=== PATIENT | female | born 1985 | race Two or more races ===

== ENCOUNTER 2022-08-27 14:23 | Inpatient (IN) | payer MEDICAID ==
[~2022-08-27] VITALS: Ht 165.1 cm; Wt 55.6 kg
[2022-08-27] MEDS ORDERED: OLAN10TA74 PO (16:04)
[2022-08-27] MEDS ORDERED: ZOLPIDEM TARTRATE 10 MG TABLET PO PRN (18:15)
[2022-08-27] MEDS ORDERED: INFLUENZA VIRUS VACCINE QVS 2022-23 (6MO+)/PF 60 MCG/0.5 ML SYRINGE IM. ONE (18:30)
[2022-08-27 20:57] VITALS: BP 144/94
[2022-08-28 07:03] LABS: BASOPHILS % (AUTO) 0.8 % (0.0-2.0); EOSINOPHILS % (AUTO) 1.6 % (1.0-6.0); HEMATOCRIT 42.1 % (36-46); HEMOGLOBIN 14.2 g/dL (12.0-16.0); LYMPHOCYTES % (AUTO) 34.7 % (22.0-44.0); MEAN CORPUSCULAR HEMOGLOBIN 30.2 pg (26.0-34.0); MEAN CORPUSCULAR HGB CONC 33.7 G/dL (31.0-37.0); MEAN CORPUSCULAR VOLUME 90 fL (80-100); MONOCYTES # (AUTO) 0.7 K/uL (0.1-1.0); MONOCYTES % (AUTO) 11.9 % (2.0-9.0); NEUTROPHILS # (AUTO) 2.9 K/uL (1.8-7.7); PLATELET COUNT (AUTO) 266 K/uL (150-450); RED BLOOD CELL COUNT(AUTO) 4.71 MIL/uL (4.00-5.20); RED CELL DISTRIBUTION WIDTH 14.5 % (11.5-14.5)
[2022-08-28 07:19] LABS: HEMOGLOBIN A1C 5.7 % (3.8-5.6)
[2022-08-28 07:20] LABS: ALANINE AMINOTRANSFERASE 17 U/L (12-78); ALBUMIN 3.3 g/dL (3.4-5.0); ALKALINE PHOSPHATASE 71 U/L (46-116); ANION GAP 7 mmol/L (8-16); ASPARTATE AMINOTRANSFERASE 11 U/L (15-37); BILIRUBIN,TOTAL 0.2 mg/dL (0.1-1.0); CALCIUM, TOTAL 8.6 mg/dL (8.8-10.5); CARBON DIOXIDE 32 mmol/L (22-29); CHLORIDE 102 mmol/L (98-107); CHOL/HDL RATIO 2.8 (3.9-5.7); CHOLESTEROL 155 mg/dL (131-200); CREATININE 0.69 mg/dL (0.60-1.30); FREE T4 (FREE THYROXINE) 0.93 ng/dL (0.76-1.46); GLUCOSE,RANDOM 91 mg/dL (70-110); HCG,QUANTITATIVE < 1 mIU/mL (0-6); HDL CHOLESTEROL 56 mg/dL (40-60); LDL CHOL (CALC.) 61 mg/dL (0-130); POTASSIUM 3.7 mmol/L (3.5-5.1); SODIUM SERUM 141 mmol/L (136-145); THYROID STIMULATING HORMONE 0.45 uIU/mL (0.36-3.74); TOTAL PROTEIN, SERUM 6.6 g/dL (6.4-8.2); TRIGLYCERIDES 191 mg/dL (15-150); UREA NITROGEN, BLOOD 15 mg/dL (7-18)
[2022-08-28 07:21] LABS: GLOMERULAR FILTR. RATE CALC > 60 mL/min (>60)
[2022-08-28 08:17] VITALS: BP 120/67
[2022-08-28] MEDS: HALOPERIDOL 5 MG TABLET PO PRN (11:00)
[2022-08-28] MEDS: LORazepam 2 MG TABLET PO PRN (11:00)
[2022-08-28] MEDS ORDERED: IBUPROFEN 400 MG TABLET PO PRN (11:30)
[2022-08-28] MEDS ORDERED: ALBUTEROL SULFATE HFA 90 MCG/PUFF 8 GM INHALER IH PRN (11:30)
[2022-08-28] MEDS ORDERED: NICOTINE 14 MG/24 HOUR PATCH TD PRN (11:30)
[2022-08-28] MEDS ORDERED: MAG HYDROX/AL HYDROX/SIMETH ES 30 ML SUSPENSION UDCUP PO PRN (11:30)
[2022-08-28] MEDS ORDERED: DOCUSATE SODIUM 100 MG CAPSULE PO PRN (11:30)
[2022-08-28] MEDS ORDERED: GuaiFENesin/D-METHORPHAN [SUGAR-FREE] 200-20MG/10 ML SYRUP UDCUP PO PRN (11:30)
[2022-08-28] MEDS ORDERED: ACETAMINOPHEN 325 MG TABLET PO PRN (11:30)
[2022-08-28] MEDS ORDERED: ONDANSETRON HCL 4 MG TABLET PO PRN (11:30)
[2022-08-28] MEDS ORDERED: LOPERAMIDE HCL 2 MG CAPSULE PO PRN (11:30)
[2022-08-28] MEDS ORDERED: CloNIDine HCL 0.1 MG TABLET PO PRN (11:30)
[2022-08-28] MEDS ORDERED: PETROLATUM,WHITE 28 GM JELLY TP PRN (11:30)
[2022-08-28] MEDS ORDERED: MAGNESIUM HYDROXIDE SUSPENSION 30 ML UDCUP PO PRN (11:30)
[2022-08-28] MEDS: OLANZapine 10 MG TABLET PO SCH (20:02)
[2022-08-28 20:03] VITALS: BP 116/65
[2022-08-29] MEDS ORDERED: PERMETHRIN 1% 60 ML LOTION TP ONE (07:30)
[2022-08-29 08:05] VITALS: BP 119/87
[2022-08-29] MEDS: LORazepam 2 MG TABLET PO PRN (17:00)
[2022-08-29] MEDS: HALOPERIDOL 5 MG TABLET PO PRN (17:00)
[2022-08-29 20:17] VITALS: BP 117/77
[2022-08-29] MEDS: OLANZapine 10 MG TABLET PO SCH (20:40)
[2022-08-30 08:22] VITALS: BP 112/69
[2022-08-30] MEDS: OLANZapine 10 MG TABLET PO SCH (20:08)
[2022-08-30 20:14] VITALS: BP 107/60
[2022-08-31] MEDS: LORazepam 2 MG TABLET PO PRN (09:47)
[2022-08-31 20:19] VITALS: BP 100/60
[2022-08-31] MEDS: OLANZapine 10 MG TABLET PO SCH (20:51)
[2022-09-01 06:01] LABS: GLUCOMETER DEV NAME(LOC) POC.BV
[2022-09-01 08:34] VITALS: BP 113/69
[2022-09-01] MEDS: HALOPERIDOL 5 MG TABLET PO PRN (12:47)
[2022-09-01] MEDS: LORazepam 2 MG TABLET PO PRN ×2 (12:47→21:09)
[2022-09-01] MEDS ORDERED: HALOPERIDOL LACTATE 5 MG/ML VIAL ONE (13:00)
[2022-09-01] MEDS ORDERED: LORazepam 2 MG/ML VIAL ONE (13:00)
[2022-09-01] MEDS ORDERED: DiphenhydrAMINE HCL 50 MG/ML VIAL ONE (13:00)
[2022-09-01] MEDS ORDERED: LORazepam 2 MG/ML VIAL IM ONE (13:15)
[2022-09-01] MEDS ORDERED: HALOPERIDOL LACTATE 5 MG/ML VIAL IM ONE (13:15)
[2022-09-01] MEDS ORDERED: DiphenhydrAMINE HCL 50 MG/ML VIAL IM ONE (13:15)
[2022-09-01 20:52] VITALS: BP 102/65
[2022-09-01] MEDS: OLANZapine 10 MG TABLET PO SCH (21:09)
[2022-09-02] MEDS: LORazepam 2 MG TABLET PO PRN (08:53)
[2022-09-02 20:33] VITALS: BP 102/62
[2022-09-02] MEDS: OLANZapine 10 MG TABLET PO SCH (20:35)
[2022-09-03] MEDS: HALOPERIDOL 5 MG TABLET PO PRN ×2 (08:05→13:15)
[2022-09-03] MEDS: LORazepam 2 MG TABLET PO PRN ×2 (08:05→13:15)
[2022-09-03 20:00] VITALS: BP 110/69
[2022-09-03] MEDS: OLANZapine 10 MG TABLET PO SCH (20:37)
[2022-09-04] MEDS: LORazepam 2 MG TABLET PO PRN (09:45)
[2022-09-04] MEDS: HALOPERIDOL 5 MG TABLET PO PRN (09:45)
[2022-09-04] MEDS ORDERED: OLAN10 PO (13:23)
== END 2022-09-04 16:00 | disposition home or self-care (01) | DRG 750 ==
LOC: B3A 18:13
PROVIDERS: ADMIT Psychiatry & Neurology Psychiatry; ATTEND Psychiatry & Neurology Psychiatry
DX: F25.0 Schizoaffective disorder, bipolar type (principal); R45.851 Suicidal ideations; E78.5 Hyperlipidemia, unspecified; Z20.822 Contact with and (suspected) exposure to COVID-19; F11.20 Opioid dependence, uncomplicated; G47.00 Insomnia, unspecified; Z59.00 Homelessness unspecified; Z88.1 Allergy status to other antibiotic agents; Z91.51 Personal history of suicidal behavior
CPT/HCPCS: 80053; 80061; 83036; 84439; 84443; 84702; 85025; 87081; J1200; J1630; J2060

== ENCOUNTER 2022-12-15 18:19 | Inpatient (IN) | payer MEDICAID ==
[~2022-12-15] VITALS: Ht 165.1 cm; Wt 65.3 kg
[~2022-12-15 18:19] MED LIST: OLAN10 PO
[2022-12-16 03:34] VITALS: BP 100/60
[2022-12-16 08:02] LABS: BASOPHILS % (AUTO) 0.9 % (0.0-2.0); EOSINOPHILS % (AUTO) 3.2 % (1.0-6.0); HEMATOCRIT 40.4 % (36-46); HEMOGLOBIN 13.6 g/dL (12.0-16.0); LYMPHOCYTES # (AUTO) 2.4 K/uL (1.0-4.8); LYMPHOCYTES % (AUTO) 47.2 % (22.0-44.0); MEAN CORPUSCULAR HGB CONC 33.6 G/dL (31.0-37.0); MEAN CORPUSCULAR VOLUME 90 fL (80-100); MONOCYTES # (AUTO) 0.5 K/uL (0.1-1.0); MONOCYTES % (AUTO) 9.2 % (2.0-9.0); NEUTROPHILS % (AUTO) 39.5 % (40.0-70.0); PLATELET COUNT (AUTO) 332 K/uL (150-450); RED BLOOD CELL COUNT(AUTO) 4.51 MIL/uL (4.00-5.20); RED CELL DISTRIBUTION WIDTH 13.1 % (11.5-14.5)
[2022-12-16 08:31] VITALS: BP 124/79
[2022-12-16 08:33] LABS: HEMOGLOBIN A1C 5.7 % (3.8-5.6)
[2022-12-16 08:35] LABS: ALANINE AMINOTRANSFERASE 20 U/L (12-78); ALBUMIN 3.4 g/dL (3.4-5.0); ALKALINE PHOSPHATASE 61 U/L (46-116); ANION GAP 6 mmol/L (8-16); ASPARTATE AMINOTRANSFERASE 24 U/L (15-37); BILIRUBIN,TOTAL 0.5 mg/dL (0.1-1.0); CALCIUM, TOTAL 8.6 mg/dL (8.8-10.5); CARBON DIOXIDE 28 mmol/L (22-29); CHLORIDE 107 mmol/L (98-107); CHOL/HDL RATIO 2.2 (3.9-5.7); CHOLESTEROL 137 mg/dL (131-200); CREATININE 0.71 mg/dL (0.60-1.30); FREE T4 (FREE THYROXINE) 1.18 ng/dL (0.76-1.46); GLOMERULAR FILTR. RATE CALC > 60 mL/min (>60); GLUCOSE,RANDOM 82 mg/dL (70-110); HCG,QUANTITATIVE < 1 mIU/mL (0-6); HDL CHOLESTEROL 63 mg/dL (40-60); LDL CHOL (CALC.) 63 mg/dL (0-130); POTASSIUM 3.7 mmol/L (3.5-5.1); SODIUM SERUM 141 mmol/L (136-145); THYROID STIMULATING HORMONE 0.59 uIU/mL (0.36-3.74); TOTAL PROTEIN, SERUM 6.1 g/dL (6.4-8.2); TRIGLYCERIDES 55 mg/dL (15-150); UREA NITROGEN, BLOOD 16 mg/dL (7-18)
[2022-12-16] MEDS: HALOPERIDOL 5 MG TABLET PO PRN (16:15)
[2022-12-16] MEDS: LORazepam 2 MG TABLET PO PRN (16:15)
[2022-12-16 20:03] VITALS: BP 116/76
[2022-12-16] MEDS: OLANZapine 10 MG TABLET PO SCH (20:40)
[2022-12-17 08:17] VITALS: BP 105/66
[2022-12-17] MEDS: LORazepam 2 MG TABLET PO PRN (10:06)
[2022-12-17 20:08] VITALS: BP 104/60
[2022-12-17] MEDS: OLANZapine 10 MG TABLET PO SCH (21:08)
[2022-12-18 08:06] VITALS: BP 107/64
[2022-12-18] MEDS: LORazepam 2 MG TABLET PO PRN (17:14)
[2022-12-18] MEDS: HALOPERIDOL 5 MG TABLET PO PRN (17:14)
[2022-12-18 20:00] VITALS: BP 103/71
[2022-12-18] MEDS: OLANZapine 10 MG TABLET PO SCH (20:44)
[2022-12-19 08:20] VITALS: BP 118/79
[2022-12-19] MEDS: HALOPERIDOL 5 MG TABLET PO PRN (14:33)
[2022-12-19] MEDS: LORazepam 2 MG TABLET PO PRN (14:33)
[2022-12-19] MEDS: OLANZapine 10 MG TABLET PO SCH (20:37)
[2022-12-19 21:08] VITALS: BP 108/71
[2022-12-20 08:51] VITALS: BP 123/79
[2022-12-20] MEDS: LORazepam 2 MG TABLET PO PRN (13:56)
[2022-12-20 20:00] VITALS: BP 99/60
[2022-12-20] MEDS: OLANZapine 10 MG TABLET PO SCH (20:51)
[2022-12-21 08:18] VITALS: BP 100/63
[2022-12-21] MEDS: LORazepam 2 MG TABLET PO PRN ×2 (11:06→16:06)
[2022-12-21 20:07] VITALS: BP 103/61
[2022-12-21] MEDS: OLANZapine 10 MG TABLET PO SCH (20:09)
[2022-12-22 08:25] VITALS: BP 106/65
[2022-12-22] MEDS: LORazepam 2 MG TABLET PO PRN (10:30)
[2022-12-22] MEDS: HALOPERIDOL 5 MG TABLET PO PRN (10:49)
[2022-12-22 17:31] LABS: GLUCOMETER DEV NAME(LOC) POC.BV
[2022-12-22 20:00] VITALS: BP 108/72
[2022-12-22] MEDS: OLANZapine 10 MG TABLET PO SCH (20:49)
[2022-12-23] MEDS: ZOLPIDEM TARTRATE 10 MG TABLET PO PRN ×2 (00:47→20:01)
[2022-12-23 08:33] VITALS: BP 100/70
[2022-12-23] MEDS: LORazepam 2 MG TABLET PO PRN ×3 (09:37→22:40)
[2022-12-23] MEDS: OLANZapine 10 MG TABLET PO SCH (20:01)
[2022-12-23 20:10] VITALS: BP 108/82
[2022-12-24 08:34] VITALS: BP 120/66
[2022-12-24] MEDS: LORazepam 2 MG TABLET PO PRN ×3 (10:32→20:35)
[2022-12-24] MEDS: NICOTINE 14 MG/24 HOUR PATCH TD SCH (13:49)
[2022-12-24 14:56] LABS: APPEARANCE,URINE CLEAR (CLEAR); BILIRUBIN,URINE NEGATIVE (NEGATIVE); GLUCOSE, URINE (UA) NEGATIVE (NEGATIVE); KETONES,URINE NEGATIVE (NEGATIVE); LEUKOCYTE ESTERASE ,URINE NEGATIVE (NEGATIVE); NITRATE,URINE NEGATIVE (NEGATIVE); OCCULT BLOOD,URINE NEGATIVE (NEGATIVE); PH,URINE 7.5 (5.0-8.0); PROTEIN,URINE NEGATIVE (NEGATIVE); SPECIFIC GRAVITIY, URINE 1.011 (1.003-1.030); UROBILINOGEN,URINE <=1.0 mg/dL (<=1.0)
[2022-12-24 15:04] LABS: AMPHET/METH SCREEN,URINE NEGATIVE (NEGATIVE); BARBITURATE SCREEN, URINE NEGATIVE (NEGATIVE); BENZODIAZEPINES SCREEN,URINE NEGATIVE (NEGATIVE); CANNABINOID SCREEN,URINE NEGATIVE (NEGATIVE); COCAINE SCREEN,URINE NEGATIVE (NEGATIVE); METHADONE SCREEN, URINE NEGATIVE (NEGATIVE); OPIATE SCREEN,URINE NEGATIVE (NEGATIVE); PHENCYCLIDINE SCREEN,URINE NEGATIVE (NEGATIVE)
[2022-12-24] MEDS: OLANZapine 10 MG TABLET PO SCH (20:35)
[2022-12-24 22:23] VITALS: BP 119/78
[2022-12-25] MEDS: NICOTINE 14 MG/24 HOUR PATCH TD SCH (08:02)
[2022-12-25 08:44] VITALS: BP 106/62
[2022-12-25] MEDS: LORazepam 2 MG TABLET PO PRN ×2 (11:06→20:15)
[2022-12-25] MEDS: ZOLPIDEM TARTRATE 10 MG TABLET PO PRN (20:15)
[2022-12-25] MEDS: OLANZapine 10 MG TABLET PO SCH (20:15)
[2022-12-25 20:26] VITALS: BP 106/62
[2022-12-26 08:12] VITALS: BP 126/84
[2022-12-26] MEDS: NICOTINE 14 MG/24 HOUR PATCH TD SCH (09:17)
[2022-12-26] MEDS: LORazepam 2 MG TABLET PO PRN ×2 (13:57→20:02)
[2022-12-26 20:00] VITALS: BP 128/76
[2022-12-26] MEDS: ZOLPIDEM TARTRATE 10 MG TABLET PO PRN (20:02)
[2022-12-26] MEDS: HALOPERIDOL 5 MG TABLET PO PRN (20:03)
[2022-12-26] MEDS: OLANZapine 10 MG TABLET PO SCH (20:03)
[2022-12-27] MEDS: NICOTINE 14 MG/24 HOUR PATCH TD SCH (08:12)
[2022-12-27 08:36] VITALS: BP 110/71
[2022-12-27] MEDS: LORazepam 2 MG TABLET PO PRN ×2 (13:22→21:21)
[2022-12-27 20:00] VITALS: BP 106/61
[2022-12-27] MEDS: OLANZapine 10 MG TABLET PO SCH (20:12)
[2022-12-27] MEDS: ZOLPIDEM TARTRATE 10 MG TABLET PO PRN (21:21)
[2022-12-27] MEDS: HALOPERIDOL 5 MG TABLET PO PRN (21:21)
[2022-12-28] MEDS: NICOTINE 14 MG/24 HOUR PATCH TD SCH (08:38)
[2022-12-28 08:46] VITALS: BP 90/59
== END 2022-12-28 15:00 | disposition home or self-care (01) | DRG 750 ==
LOC: B3A 22:42
PROVIDERS: ADMIT Psychiatry & Neurology Child & Adolescent Psychiatry; ATTEND Psychiatry & Neurology Child & Adolescent Psychiatry
DX: F20.0 Paranoid schizophrenia (principal); E78.5 Hyperlipidemia, unspecified; F10.10 Alcohol abuse, uncomplicated; F19.10 Other psychoactive substance abuse, uncomplicated; Z20.822 Contact with and (suspected) exposure to COVID-19; G47.00 Insomnia, unspecified; Z88.1 Allergy status to other antibiotic agents; Z79.899 Other long term (current) drug therapy
CPT/HCPCS: 80053; 80061; 80307; 81003; 83036; 84439; 84443; 84702; 85025; 99285

== ENCOUNTER 2023-03-05 14:17 | Inpatient (IN) | payer MEDICAID, OTHER ==
[~2023-03-05] VITALS: Ht 170.2 cm; Wt 67.3 kg
[2023-03-05 15:14] LABS: BASOPHILS % (AUTO) 1.2 % (0.0-2.0); EOSINOPHILS % (AUTO) 1.1 % (1.0-6.0); HEMATOCRIT 40.9 % (36-46); HEMOGLOBIN 13.4 g/dL (12.0-16.0); LYMPHOCYTES # (AUTO) 2.2 K/uL (1.0-4.8); LYMPHOCYTES % (AUTO) 40.4 % (22.0-44.0); MEAN CORPUSCULAR HEMOGLOBIN 29.7 pg (26.0-34.0); MEAN CORPUSCULAR HGB CONC 32.7 G/dL (31.0-37.0); MEAN CORPUSCULAR VOLUME 91 fL (80-100); MONOCYTES # (AUTO) 0.4 K/uL (0.1-1.0); MONOCYTES % (AUTO) 7.6 % (2.0-9.0); NEUTROPHILS # (AUTO) 2.7 K/uL (1.8-7.7); NEUTROPHILS % (AUTO) 49.7 % (40.0-70.0); PLATELET COUNT (AUTO) 288 K/uL (150-450); RED CELL DISTRIBUTION WIDTH 14.3 % (11.5-14.5)
[2023-03-05 15:39] LABS: ANION GAP 13 mmol/L (8-16); CALCIUM, TOTAL 9.1 mg/dL (8.8-10.5); CARBON DIOXIDE 25 mmol/L (22-29); CHLORIDE 102 mmol/L (98-107); CREATININE 0.64 mg/dL (0.60-1.30); GLOMERULAR FILTR. RATE CALC > 60 mL/min (>60); GLUCOSE,RANDOM 86 mg/dL (70-110); POTASSIUM 3.2 mmol/L (3.5-5.1); SODIUM SERUM 140 mmol/L (136-145)
[2023-03-05 15:44] LABS: ALANINE AMINOTRANSFERASE 22 U/L (12-78); ALBUMIN 3.9 g/dL (3.4-5.0); ALKALINE PHOSPHATASE 55 U/L (46-116); ASPARTATE AMINOTRANSFERASE 17 U/L (15-37); BILIRUBIN,TOTAL 0.5 mg/dL (0.1-1.0); TOTAL PROTEIN, SERUM 6.7 g/dL (6.4-8.2)
[2023-03-05] MEDS ORDERED: CITA10TA99 PO (15:48)
[2023-03-05] MEDS ORDERED: OLAN10TA74 PO (15:48)
[2023-03-05] MEDS ORDERED: TRAZ-252 PO (15:48)
[2023-03-05] MEDS ORDERED: POTASSIUM CHLORIDE 20 MEQ ER TABLET PO ONE (16:00)
[2023-03-05 16:33] LABS: COVID AG,FIA SOURCE NASOPHARYNGEAL
[2023-03-05] MEDS ORDERED: HALOPERIDOL 5 MG TABLET PO PRN (17:15)
[2023-03-05] MEDS: LORazepam 2 MG TABLET PO PRN (17:51)
[2023-03-06] MEDS ORDERED: MAGNESIUM HYDROXIDE SUSPENSION 30 ML UDCUP PO PRN (06:00)
[2023-03-06] MEDS ORDERED: PETROLATUM,WHITE 28 GM JELLY TP PRN (06:00)
[2023-03-06] MEDS ORDERED: ONDANSETRON HCL 4 MG TABLET PO PRN (06:00)
[2023-03-06] MEDS ORDERED: ALBUTEROL SULFATE HFA 90 MCG/PUFF 8 GM INHALER IH PRN (06:00)
[2023-03-06] MEDS ORDERED: CloNIDine HCL 0.1 MG TABLET PO PRN (06:00)
[2023-03-06] MEDS ORDERED: DOCUSATE SODIUM 100 MG CAPSULE PO PRN (06:00)
[2023-03-06] MEDS ORDERED: MAG HYDROX/AL HYDROX/SIMETH ES 30 ML SUSPENSION UDCUP PO PRN (06:00)
[2023-03-06] MEDS ORDERED: ACETAMINOPHEN 325 MG TABLET PO PRN (06:00)
[2023-03-06] MEDS ORDERED: GuaiFENesin/D-METHORPHAN [SUGAR-FREE] 200-20MG/10 ML SYRUP UDCUP PO PRN (06:00)
[2023-03-06] MEDS ORDERED: IBUPROFEN 400 MG TABLET PO PRN (06:00)
[2023-03-06] MEDS ORDERED: LOPERAMIDE HCL 2 MG CAPSULE PO PRN (06:00)
[2023-03-06] MEDS: CITALOPRAM HYDROBROMIDE 10 MG TABLET PO SCH (10:45)
[2023-03-06] MEDS: TraZODone HCL 50 MG TABLET PO SCH (20:20)
[2023-03-06] MEDS: OLANZapine 10 MG TABLET PO SCH (20:20)
[2023-03-06] MEDS: ZOLPIDEM TARTRATE 10 MG TABLET PO PRN (21:21)
[2023-03-07 07:19] LABS: BASOPHILS % (AUTO) 1.5 % (0.0-2.0); EOSINOPHILS % (AUTO) 4.3 % (1.0-6.0); HEMATOCRIT 45.3 % (36-46); HEMOGLOBIN 14.9 g/dL (12.0-16.0); LYMPHOCYTES # (AUTO) 2.1 K/uL (1.0-4.8); LYMPHOCYTES % (AUTO) 40.2 % (22.0-44.0); MEAN CORPUSCULAR HEMOGLOBIN 29.9 pg (26.0-34.0); MEAN CORPUSCULAR VOLUME 91 fL (80-100); MONOCYTES # (AUTO) 0.5 K/uL (0.1-1.0); NEUTROPHILS # (AUTO) 2.3 K/uL (1.8-7.7); PLATELET COUNT (AUTO) 304 K/uL (150-450); RED BLOOD CELL COUNT(AUTO) 4.99 MIL/uL (4.00-5.20); RED CELL DISTRIBUTION WIDTH 14.2 % (11.5-14.5)
[2023-03-07 07:47] LABS: HEMOGLOBIN A1C 5.2 % (3.8-5.6)
[2023-03-07 07:52] LABS: ALANINE AMINOTRANSFERASE 16 U/L (12-78); ALBUMIN 3.4 g/dL (3.4-5.0); ALKALINE PHOSPHATASE 57 U/L (46-116); ANION GAP 3 mmol/L (8-16); ASPARTATE AMINOTRANSFERASE 12 U/L (15-37); BILIRUBIN,TOTAL 0.5 mg/dL (0.1-1.0); CALCIUM, TOTAL 8.7 mg/dL (8.8-10.5); CARBON DIOXIDE 27 mmol/L (22-29); CHLORIDE 103 mmol/L (98-107); CHOL/HDL RATIO 2.2 (3.9-5.7); CHOLESTEROL 139 mg/dL (131-200); CREATININE 0.65 mg/dL (0.60-1.30); GLOMERULAR FILTR. RATE CALC > 60 mL/min (>60); GLUCOSE,RANDOM 97 mg/dL (70-110); HDL CHOLESTEROL 64 mg/dL (40-60); LDL CHOL (CALC.) 62 mg/dL (0-130); POTASSIUM 3.7 mmol/L (3.5-5.1); SODIUM SERUM 133 mmol/L (136-145); THYROID STIMULATING HORMONE 0.53 uIU/mL (0.36-3.74); TOTAL PROTEIN, SERUM 6.4 g/dL (6.4-8.2); TRIGLYCERIDES 63 mg/dL (15-150)
[2023-03-07] MEDS: CITALOPRAM HYDROBROMIDE 10 MG TABLET PO SCH (07:59)
[2023-03-07 08:30] VITALS: BP 111/65; PULSE 73; RESP 18; TEMP 98.3
[2023-03-07] MEDS: OLANZapine 10 MG TABLET PO SCH (20:38)
[2023-03-07] MEDS: TraZODone HCL 50 MG TABLET PO SCH (20:38)
[2023-03-07 21:35] VITALS: BP 118/70; PULSE 68; RESP 18; TEMP 98
[2023-03-08 08:23] VITALS: BP 123/67; PULSE 56; RESP 18; TEMP 97.6
[2023-03-08] MEDS: CITALOPRAM HYDROBROMIDE 10 MG TABLET PO SCH (09:49)
[2023-03-08 17:40] LABS: APPEARANCE,URINE CLEAR (CLEAR); BILIRUBIN,URINE NEGATIVE (NEGATIVE); GLUCOSE, URINE (UA) NEGATIVE (NEGATIVE); KETONES,URINE NEGATIVE (NEGATIVE); LEUKOCYTE ESTERASE ,URINE NEGATIVE (NEGATIVE); NITRATE,URINE NEGATIVE (NEGATIVE); OCCULT BLOOD,URINE NEGATIVE (NEGATIVE); PH,URINE 7.5 (5.0-8.0); PROTEIN,URINE NEGATIVE (NEGATIVE); SPECIFIC GRAVITIY, URINE 1.013 (1.003-1.030); UROBILINOGEN,URINE <=1.0 mg/dL (<=1.0)
[2023-03-08 17:47] LABS: AMPHET/METH SCREEN,URINE NEGATIVE (NEGATIVE); BARBITURATE SCREEN, URINE NEGATIVE (NEGATIVE); BENZODIAZEPINES SCREEN,URINE NEGATIVE (NEGATIVE); CANNABINOID SCREEN,URINE NEGATIVE (NEGATIVE); COCAINE SCREEN,URINE NEGATIVE (NEGATIVE); METHADONE SCREEN, URINE NEGATIVE (NEGATIVE); OPIATE SCREEN,URINE NEGATIVE (NEGATIVE); PHENCYCLIDINE SCREEN,URINE NEGATIVE (NEGATIVE)
[2023-03-08] MEDS: OLANZapine 10 MG TABLET PO SCH (20:51)
[2023-03-08] MEDS: TraZODone HCL 50 MG TABLET PO SCH (20:51)
[2023-03-09 08:35] VITALS: RESP 17
[2023-03-09] MEDS: CITALOPRAM HYDROBROMIDE 10 MG TABLET PO SCH (09:17)
[2023-03-09] MEDS: OLANZapine 10 MG TABLET PO SCH (20:58)
[2023-03-09] MEDS: TraZODone HCL 50 MG TABLET PO SCH (20:58)
[2023-03-09 21:49] VITALS: RESP 18
[2023-03-10] MEDS: CITALOPRAM HYDROBROMIDE 10 MG TABLET PO SCH (08:52)
[2023-03-10 09:08] VITALS: BP 115/61; PULSE 71; RESP 17; TEMP 97.6
[2023-03-10] MEDS: OLANZapine 10 MG TABLET PO SCH (20:59)
[2023-03-10] MEDS: TraZODone HCL 50 MG TABLET PO SCH (20:59)
[2023-03-10 21:18] VITALS: BP 112/71; PULSE 88; RESP 18; TEMP 97
[2023-03-11] MEDS: CITALOPRAM HYDROBROMIDE 10 MG TABLET PO SCH (08:48)
[2023-03-11 09:45] VITALS: BP 103/59; PULSE 70; RESP 18; TEMP 97.2
[2023-03-11] MEDS: NICOTINE 14 MG/24 HOUR PATCH TD PRN (16:04)
[2023-03-11] MEDS: OLANZapine 10 MG TABLET PO SCH (20:55)
[2023-03-11] MEDS: TraZODone HCL 50 MG TABLET PO SCH (20:55)
[2023-03-11 21:41] VITALS: BP 108/64; PULSE 74; RESP 18; TEMP 97.4
[2023-03-11] MEDS: ZOLPIDEM TARTRATE 10 MG TABLET PO PRN (22:15)
[2023-03-12 09:15] VITALS: BP 97/58; PULSE 62; RESP 19; TEMP 97.2
[2023-03-12] MEDS: CITALOPRAM HYDROBROMIDE 10 MG TABLET PO SCH (09:46)
[2023-03-12] MEDS: TraZODone HCL 50 MG TABLET PO SCH (20:43)
[2023-03-12] MEDS: OLANZapine 10 MG TABLET PO SCH (20:43)
[2023-03-12 21:51] VITALS: BP 110/57; PULSE 104; RESP 18; TEMP 97.7
[2023-03-13] MEDS: ZOLPIDEM TARTRATE 10 MG TABLET PO PRN (00:34)
[2023-03-13 08:10] VITALS: BP 113/71; PULSE 100; RESP 18; TEMP 97.4
[2023-03-13] MEDS: CITALOPRAM HYDROBROMIDE 10 MG TABLET PO SCH (08:46)
[2023-03-13] MEDS: LORazepam 2 MG TABLET PO PRN (13:52)
[2023-03-13] MEDS: NICOTINE 14 MG/24 HOUR PATCH TD PRN (15:24)
[2023-03-13 20:25] VITALS: BP 120/65; PULSE 90; RESP 19; TEMP 97.7
[2023-03-13] MEDS: OLANZapine 10 MG TABLET PO SCH (20:34)
[2023-03-13] MEDS: TraZODone HCL 50 MG TABLET PO SCH (20:34)
[2023-03-14] MEDS: CITALOPRAM HYDROBROMIDE 10 MG TABLET PO SCH (07:56)
[2023-03-14 08:07] VITALS: BP 112/74; PULSE 90; RESP 18; TEMP 97.8
[2023-03-14] MEDS: NICOTINE 14 MG/24 HOUR PATCH TD PRN (14:15)
[2023-03-14] MEDS: TraZODone HCL 50 MG TABLET PO SCH (20:30)
[2023-03-14] MEDS: OLANZapine 10 MG TABLET PO SCH (20:32)
[2023-03-14] MEDS: ZOLPIDEM TARTRATE 10 MG TABLET PO PRN (21:12)
[2023-03-14 21:39] VITALS: BP 112/71; PULSE 85; RESP 18; TEMP 97.4
[2023-03-14] MEDS: LORazepam 2 MG TABLET PO PRN (23:04)
[2023-03-15] MEDS: CITALOPRAM HYDROBROMIDE 10 MG TABLET PO SCH (07:46)
[2023-03-15 08:02] VITALS: BP 97/61; PULSE 94; RESP 18; TEMP 97.6
[2023-03-15] MEDS: TraZODone HCL 50 MG TABLET PO SCH (20:14)
[2023-03-15] MEDS: OLANZapine 10 MG TABLET PO SCH (20:14)
[2023-03-15 20:30] VITALS: BP 101/55; PULSE 97; RESP 18; TEMP 98.1
[2023-03-15] MEDS: ZOLPIDEM TARTRATE 10 MG TABLET PO PRN (23:08)
[2023-03-16 08:05] VITALS: BP 133/77; PULSE 101; RESP 18; TEMP 98
[2023-03-16] MEDS: CITALOPRAM HYDROBROMIDE 10 MG TABLET PO SCH (08:53)
[2023-03-16] MEDS: LORazepam 2 MG TABLET PO PRN (17:16)
[2023-03-16 20:11] VITALS: BP 130/85; PULSE 98; RESP 17; TEMP 98.2
[2023-03-16] MEDS: TraZODone HCL 50 MG TABLET PO SCH (20:16)
[2023-03-16] MEDS: OLANZapine 10 MG TABLET PO SCH (20:16)
[2023-03-17] MEDS: CITALOPRAM HYDROBROMIDE 10 MG TABLET PO SCH (08:24)
[2023-03-17 08:49] VITALS: BP 109/70; PULSE 102; RESP 18; TEMP 97.6
[2023-03-17] MEDS ORDERED: TRAZ-252 PO (17:03)
[2023-03-17] MEDS ORDERED: CITA10TA99 PO (17:03)
[2023-03-17] MEDS ORDERED: OLAN10TA74 PO (17:03)
== END 2023-03-17 15:00 | disposition home or self-care (01) | DRG 750 ==
LOC: EMS 14:17 → 3EC 22:48 → UNDOADMIN 22:48 → 3EC 03-06 00:25
PROVIDERS: ADMIT Psychiatry & Neurology Child & Adolescent Psychiatry; ATTEND Psychiatry & Neurology Child & Adolescent Psychiatry
DX: F20.0 Paranoid schizophrenia (principal); R45.851 Suicidal ideations; E87.6 Hypokalemia; Z20.822 Contact with and (suspected) exposure to COVID-19; F41.9 Anxiety disorder, unspecified; F10.10 Alcohol abuse, uncomplicated; F19.10 Other psychoactive substance abuse, uncomplicated; G47.00 Insomnia, unspecified; Z79.899 Other long term (current) drug therapy; Z88.1 Allergy status to other antibiotic agents
CPT/HCPCS: 80053; 80061; 80307; 81003; 83036; 84132; 84443; 84703; 85025; 99285; G0480